=== PATIENT | male | born 1990 | race Caucasian/White ===

== ENCOUNTER 2024-09-30 11:24 | Emergency (ER) | payer BC, SELFPAY ==
[2024-09-30 11:26] VITALS: BP 160/110
--- NOTE | 2024-09-30 12:37 | ED.GENMED ---
History of Present Illness
General
Chief Complaint: Foreign Body Removal
Time Seen by Provider: 09/30/24 11:40
History of Present Illness
History of Present Illness:
33-year-old male presents the emergency department for evaluation of a foreign body to the right anterior lower leg. He was weed whacking with a metal wire when he struck himself in the leg and there is a lengthy piece of wire protruding from the
anterior leg entering through the lateral lower leg. Last tetanus unknown
Past History
Social History
Tobacco: Smoker
Review of Systems
Review of Systems
Allergies reviewed?: Yes
All Other Systems: ROS reviewed and negative except as documented in HPI and ROS
Phy Exam
Physical Exam
Physical Exam:
GEN: Well appearing, NAD, WDWN
HEENT: Oral mucosa moist, no scleral icterus
Cardiac: Regular rate
Lung: No respiratory distress, no tachypnea
MSK: No gross deformity or injuries
Skin: Good color, no pallor or jaundice, no rashes. Metal wire protruding from right lateral leg and exiting the anterior lower leg
Neuro: AO x3, moves all extremities freely
Psych: Calm, cooperative
Course
Orders/Labs/Results
Orders:
Orders
09/30/24 12:06
Tetanus/Diphth/Acelpertussis [Adacel] 0.5 ml IM .ONCE ONE
CR Leg Tibia/fibula Right 2 Vw Urgent
Comment:
Reason For Exam: post FB removal
Vital Signs
Initial and Last Documented VS:
Initial Vital Signs
Temp Pulse Resp BP Pulse Ox
98.4 F 66 16 160/110 98
09/30/24 11:26 09/30/24 11:26 09/30/24 11:26 09/30/24 11:26 09/30/24 11:26
Last Documented Vital Signs
Temp Pulse Resp BP Pulse Ox
98.4 F 66 16 160/110 98
09/30/24 11:26 09/30/24 11:26 09/30/24 11:26 09/30/24 11:26 09/30/24 12:37
Procedures
Foreign Body Removal-Skin
Wound explored and foreign body removed?: Yes
Anesthesia: local and 1%lidocaine w/epinephrine
Foreign body removed using: forceps
Foreign body removed: completely
MDM/Problems Addressed
MDM/Problems Addressed:
Foreign body removed successfully, no residual identified on postprocedural x-rays, tetanus updated will cover with antibiotics
*Pulse Oximetry
SaO2: 98
Oxygen Mode of Delivery: Room air
Patient hypoxic: no
*Critical Care Note
Total Time (30-74mins, 75-104mins- exclusive of procedures): Not Applicable
ED Attending Note
-
Portions of this chart may have been created with voice recognition software.� Occasional wrong word or��sound alike� substitutions may have occurred due to the inherent limitations of voice recognition software.
Discharge Plan
Departure
Patient Disposition: Home (Routine Discharge)
Date of Disposition: 09/30/24
Time of Disposition: 12:37
Patient with high blood pressure during this ER visit?: No
Discharge Problem:
Foreign body in right lower extremity
Instructions: Foreign Body in Skin (DC)
Prescriptions:
New
cephalexin 500 mg capsule
500 mg PO Q8H 5 Days Qty: 15 0RF
Referrals:
Jessika Ray DO [Family Provider, Family Practice]
Stand Alone Forms: Return to Work
Interventions
Interventions:
*Risk Screen - Suicide Last Done: 09/30/24 11:26
*General Assessment Last Done: 09/30/24 12:51
*Neglect/Abuse Screening Last Done: 09/30/24 11:26
*Nursing Disposition Last Done: 09/30/24 12:51
Discharge Date and Time
Discharge Date/Time: 09/30/24 13:37
Print Language: [place]
[2024-09-30] MEDS: ADACEL 0.5 ML IM (12:46)
== END 2024-09-30 13:37 | disposition home or self-care (01) ==
LOC: EMR 11:24
PROVIDERS: EMERGENCY PHYSICIAN Student in an Organized Health Care Education/Training Program; FAMILY PHYSICIAN Family Medicine
DX: S81.841A Puncture wound with foreign body, right lower leg, initial encounter (principal); W20.8XXA Other cause of strike by thrown, projected or falling object, initial encounter; Y93.H2 Activity, gardening and landscaping; Z23 Encounter for immunization
CPT/HCPCS: 99283; 90471; 73590; 90715